=== PATIENT | male | born 1970 | race Caucasian/White ===

== ENCOUNTER 2019-01-04 09:59 | Emergency (ER) | payer OTHER ==
[~2019-01-04] VITALS: Ht 182 cm; Wt 109.0 kg
--- NOTE | 2019-01-04 10:50 | ED Upper Extremity ---
General Chief Complaint: Laceration Stated Complaint: R HAND LITTLE FINGER SPLINTER Nursing Triage Note: PT AMBULATE TO TRIAGE WITH C/O SPLINTER IN FOURTH FINGER ON LEFT HAND. PT STATES IT IS FROM TREATED LUMBER. Nursing Sepsis Screen: No Definite Risk Source: patient, spouse Exam Limitations: no limitations History of Present Illness Date Seen by Provider: Jan 04, 2019 Time Seen by Provider: 10:39 Initial Comments Patient presents ER by private conveyance with his spouse and chief complaint of a splinter in the fifth digit distal palp yesterday while doing some carpentry. The wound was treated lumbar. It went through the tip of his finger and came out about 2-1/2 cm distally. His tried feeding about unsuccessfully. He is not diabetic. No immunocompromise. No tetanus shot in the last 5 years. Allergies and Home Medications Allergies Coded Allergies: No Known Drug Allergies (Unverified , 01/04/19) Home Medications Sulfamethoxazole/Trimethoprim 1 Each Tablet, 1 EACH PO BID Prescribed by: TAMAR CLARK on 01/04/19 1157 Patient Home Medication List Home Medication List Reviewed: Yes Review of Systems Constitutional: No chills, No diaphoresis EENTM: No ear discharge, No hearing loss Respiratory: No cough, No short of breath Cardiovascular: No chest pain, No edema Past Cnzfdll-Lrmldd-Sjfzcx Hx Patient Social History Alcohol Use: Regular Use Recreational Drug Use: No Smoking Status: Never a Smoker 2nd Hand Smoke Exposure: No Recent Foreign Travel: No Contact w/Someone Who Travel: No Recent Infectious Disease Expo: No Recent Hopitalizations: No Physical Abuse: No Sexual Abuse: No Mistreated: No Fear: No Seasonal Allergies Seasonal Allergies: No Past Medical History Surgeries: No Respiratory: No Cardiac: No Neurological: No Genitourinary: No Gastrointestinal: No Musculoskeletal: No Endocrine: No HEENT: No Cancer: No Psychosocial: No Integumentary: No Blood Disorders: No Physical Exam Vital Signs Vital Signs - First Documented 01/04/19 10:06 Temp 36.6 Pulse 65 Resp 18 B/P (MAP) 137/92 (107) Pulse Ox 97 O2 Delivery Room Air Capillary Refill : Less Than 3 Seconds Height, Weight, BMI Height: '" Weight: lbs. oz. kg; 32.00 BMI Method: General Appearance: WD/WN, no apparent distress Cardiovascular: normal peripheral pulses, regular rate, rhythm Respiratory: no respiratory distress, no accessory muscle use Hand: swelling (minor swelling and tenderness to the right hand fifth digit palmar side distal phalanx soft tissue with 2 small less than 1 mm punctate perforations) Progress/Results/Core Measures Results/Orders My Orders Orders - TAMAR CLARK Lidocaine 1% Inj 20 Ml (Xylocaine 1% Inj (01/04/19 11:00) Dipht,Pertuss(Acell),Tet Adult (Boostrix (01/04/19 11:00) Medications Given in ED Current Medications Medications Dose Ordered Sig/Praneeth Route Start Time Stop Time Status Last Admin Dose Admin Diphtheria/ Tetanus/Acell Pertussis 0.5 ml ONCE ONCE IM 01/04/19 11:00 01/04/19 11:01 DC 01/04/19 11:01 0.5 ML Lidocaine HCl 20 ml ONCE ONCE INJ 01/04/19 11:00 01/04/19 11:01 DC 01/04/19 11:07 20 ML Vital Signs/I&O 01/04/19 01/04/19 10:06 12:07 Temp 36.6 Pulse 65 69 Resp 18 17 B/P (MAP) 137/92 (107) 131/81 Pulse Ox 97 99 O2 Delivery Room Air Room Air Blood Pressure Mean: 107 Progress Progress Note : Time: 12:38 Progress Note Using a flashlight back light and there is no visible splinter. After discussing risks benefits and alternatives the patient agreed to allow us to explore the wound. We infiltrated the finger in a digital block using usual fashion and 3 cc of 1% lidocaine, chlorhexidine and alcohol. When the finger was ascertained to be numb we put 1/2 cc of 1% lidocaine in the distal phalanx. Then used an 11 blade scalpel to extend the distal wound by about 3-4 mm and explored it using the forceps. We could not find any foreign debris except for 2 minutes every oh flakes of dark material. We then extended 2-3 mm of the wound on the proximal side and again were unable to find any foreign debris to remove. Suspect that the splinter is very fine and will make its way out on its own. We'll put him on Bactrim with follow up with general surgery if necessary. We've given him good return precautions. Departure Impression Primary Impression: Splinter of finger without major open wound or infection Qualified Codes: S60.459A - Superficial foreign body of unspecified finger, initial encounter Disposition: 01 HOME, SELF-CARE Condition: Stable Departure-Patient Inst. Decision time for Depature: 11:49 Referrals: SHAWN DE GUZMAN,LOCAL PHYSICIAN (PCP) Primary Care Physician Patient Instructions: Foreign Body in Skin (DC) Add. Discharge Instructions: Keep the wound clean with regular soap and water. A clean dry dressing to catch the discharge is preferable If there is anything left inside the finger then your body will push it out eventually. Start taking the Bactrim one tablet twice a day with food for the next 5 days pr event infection. Your concern now is to watch for signs of infection such as extreme swelling, redness or purulent discharge. If this occurs you need to follow up with your primary doctor or Dr. De Guzman, General Surgery for management. If you begin to have fevers chills nausea vomiting or other worrisome symptoms then you may return to the ER. All discharge instructions reviewed with patient and/or family. Voiced understanding. Scripts Sulfamethoxazole/Trimethoprim (Bactrim Ds Tablet) 1 Each Tablet 1 EACH PO BID for 5 Days, #10 TAB 0 Refills Prov: TAMAR CLARK 01/04/19 TAMAR CLARK Jan 04, 2019 10:49
[2019-01-04] MEDS ORDERED: TETANUS,DIPTH,PERTUSS P/F (BOOSTRIX) 0.5 ML VIAL IM ONE (11:00)
[2019-01-04] MEDS ORDERED: LIDOCAINE 1% INJ 20 ML 20 ML VIAL INJ ONE (11:00)
[2019-01-04] MEDS ORDERED: SULF1TAB35 PO (11:57)
[2019-01-04 12:07] VITALS: BP 131/81
== END 2019-01-04 12:06 | disposition home or self-care (01) ==
LOC: EDUNIT# 09:59 → ER 10:00
DX: S60.456A Superficial foreign body of right little finger, initial encounter (principal); Z23 Encounter for immunization; W45.8XXA Other foreign body or object entering through skin, initial encounter
CPT/HCPCS: 90715